=== PATIENT | female | born 2000 | race Caucasian/White ===

== ENCOUNTER 2022-04-23 23:09 | Emergency (ER) | payer BC, SELFPAY ==
--- NOTE | 2022-04-23 23:06 | ECG_ITS ---
APPROVED REPORT Exam: Resting ECG HR:73 bpm ECG Measurements Heart Rate 73 AXES CA 194 P 49 QRSd 89 QRS 36 QT 370 T 63 QTc 396 Conclusion SINUS RHYTHM MINIMAL ST DEPRESSION [0.025+ mV ST DEPRESSION] BORDERLINE ECG UNCONFIRMED REPORT Electronically signed by : Jcarlos Funes MD 04/24/2022 15:56:31
[2022-04-23 23:10] VITALS: BP 190/110; PULSE 80; RESP 19; TEMP 36.8; O2SAT 100; BMI 35.9
[2022-04-23 23:22] VITALS: BMI 35.9
--- NOTE | 2022-04-23 23:24 | XR_ITS ---
PROCEDURE INFORMATION: Exam: XR Chest Exam date and time: 04/23/2022 11:28 PM Age: 21 years old Clinical indication: Left-sided; Patient HX: PT C/O left arm pain that radiates to center of chest. HX HTN, medicated; Additional info: Chest pain TECHNIQUE: Imaging protocol: Radiologic exam of the chest. Views: 2 views. COMPARISON: No relevant prior studies available. FINDINGS: Lungs: Unremarkable. No consolidation. Pleural spaces: Unremarkable. No pleural effusion. No pneumothorax. Heart/Mediastinum: Unremarkable. No cardiomegaly. Bones/joints: Unremarkable. IMPRESSION: No acute findings.
[2022-04-23 23:30] VITALS: BP 151/108; PULSE 83; RESP 20; O2SAT 97
[2022-04-23 23:32] LABS: Chloride 98 mmol/L (98-107); Potassium 3.7 mmoL/L (3.5-5.1); Sodium 141 mmol/L (136-145)
[2022-04-23 23:35] LABS: Blood Urea Nitrogen 14 mg/dl (7-17); Creatinine Clearance Estimated 217 mL/min (50-200); Estimated Glomerular Filt Rate 104 ml/min (>60); GFR (African American) 125 ML/MIN (>60)
[2022-04-23 23:36] LABS: Anion Gap 15.7 mEq/L (5-15); Calcium 9.1 mg/dl (8.4-10.2); Carbon Dioxide 31 mmol/L (22.0-30.0); Glucose 122 mg/dl (74-100)
[2022-04-23 23:43] LABS: Basophils # 0.3 K/mm3 (0-0.2); Basophils % 2.2 % (0.1-2.0); Eosinophils # 0.3 K/mm3 (0.0-0.4); Eosinophils % 2.9 % (0.1-12.0); Hemoglobin 14.2 g/dL (12.2-16.2); Lymphocytes # 4.4 K/mm3 (0.7-4.5); Lymphocytes % 36.3 % (10-50); Mean Corpuscular Hemoglobin 27.7 pg (27.0-31.2); Mean Corpuscular Volume 83.9 fl (81-99); Mean Platelet Volume 7.3 fl (7.4-10.4); Monocytes # 0.8 K/mm3 (0.1-1.0); Monocytes % 6.9 % (1.7-9.3); Neutrophils # 6.2 K/mm3 (1.8-7.8); Neutrophils % 51.6 % (37.0-80.0); Platelet Count 467 K/mm3 (142-424); Red Blood Count 5.12 M/mm3 (4.20-5.40); Red Cell Distribution Width 13.4 % (11.5-17.5)
[2022-04-23 23:49] LABS: Troponin I < 0.01 ng/ml (0.00-0.034)
--- NOTE | 2022-04-23 23:58 | HMH.EDCP ---
Discharge Plan Disposition Chief Complaint: Chest Pain Prescriptions Prescriptions: No Action amlodipine 5 mg tablet 5 mg PO DAILY Label Comments: TAKE 1 TABLET BY MOUTH ONCE DAILY labetalol 100 mg tablet 100 mg PO TID Label Comments: TAKE 1 TABLET BY MOUTH EVERY 6 HOURS Referrals Follow up/Referrals: Provider,Referral, MD [Primary Care Provider] - See instructions Clinical Impressions Clinical Impression: Atypical chest pain, Hypertensive emergency Instructions Patient Instructions: DI for Atypical Chest Pain Discharge ED Provider: Rajendra Castillo Chest Pain HPI General Chief Complaint: Chest Pain Stated Complaint: CP Time Seen by Provider: 04/23/22 23:45 Mode of Arrival: Family Vehicle Source of Information: Patient, Spouse and Medical Record Limitations: No Limitations Description of Symptoms (Recalled from ER Triage Doc. by RN): Pt c/o left chest wall pain that began mildly this am and intensified tonight, about 2300. States she woke up @ 0500 with the chest pain, double and blurry vision, and dizziness. States she went back to sleep for 4-5 hrs and then after waking up, vision was better but still felt dizzy. Pt reports that the pain is worse tonight and pain now radiates to L shoulder and beginning down L arm. She also has numbness to L hand. Mild headache and nausea. States she has a hx of POTS and has taken her BP medication today as prescribed. History of Present Illness HPI narrative: episode of blurred vision yesterday with elevated bp - has been compliant with meds - MD complaint: chest pain indicative of cardiac Onset (ago): hour(s) Duration: intermittent Pain location: left chest Severity: moderate Treatments prior to or on arrival for Cardiac Chest Pain: beta blockers YOVANA Score for Non-Stemi Age of Patient: <30 years old Heart Rate: 70-89 bpm Systolic Blood Pressure: 140-159 mmHg Serum Creatinine: 0.40-0.79 mg/dl CHF Kill[place] Class: I-No CHF Other Risk Factors: None Non-Stemi Risk Score: 37 Related Data On Oral Contraceptives: No Home Medications Medication Instructions Recorded Confirmed amlodipine 5 mg tablet 5 mg PO DAILY High blood pressure 04/24/22 04/24/22 labetalol 100 mg tablet 100 mg PO TID pots 04/24/22 04/24/22 Allergies Allergy/AdvReac Type Severity Reaction Status Date / Time diphenhydramine Allergy Intermediate itchy Verified 04/23/22 23:24 [From Benadryl] mouth metformin AdvReac Intermediate Diarrhea Verified 04/23/22 23:24 PFSH PFSH Social History Smoking Status: Current every day smoker alcohol intake: never current occupational status: employed Travel in the last 8 weeks: None ROS Obtained: Yes All systems reviewed & no additional complaints except as documented Physical Exam General General appearance: alert Head Head exam: normocephalic Eye Eye exam: Present PERRL and EOMI ENT ENT exam: Present mucous membranes moist Neck Neck exam: Present trachea midline Respiratory Respiratory exam: Present normal lung sounds bilaterally; Absent respiratory distress Cardiovascular Cardiovascular exam: Present regular rate; Absent systolic murmur Abdominal Exam Abdominal exam: Present soft Extremities Exam Extremities exam: Present full ROM Neurological Exam Neurological exam: Present alert, oriented X3 and other (gcs=15); Absent motor sensory deficit Psychiatric Psychiatric exam: Present normal affect Skin Skin exam: Absent rash Medical Decision Making Medical Records Medical records reviewed: Yes I reviewed the patient's medical records. Fercho Inquiry Pt receiving controlled substance: No Vital Signs: 04/23/22 23:10 04/23/22 23:30 04/24/22 00:00 Temperature 98.3 F Temperature Source Oral Pulse Rate 83 80 Pulse Rate [Orthostatic Lying] Pulse Rate [Orthostatic Sitting] Pulse Rate [Orthostatic Standing] Pulse Rate [Right] 80 Respiratory Rate 19 20 19 Blood Pressure 151/108 H 155/109 H
[2022-04-24] VITALS: BP 155/109; PULSE 80; RESP 19; O2SAT 99
--- NOTE | 2022-04-24 00:01 | CT_ITS ---
PROCEDURE INFORMATION: Exam: CT Head Without Contrast Exam date and time: 04/24/2022 12:07 AM Age: 21 years old Clinical indication: Pain; Headache; Additional info: Diamond/dizzyness with elevated BP TECHNIQUE: Imaging protocol: Computed tomography of the head without contrast. Radiation optimization: All CT scans at this facility use at least one of these dose optimization techniques: automated exposure control; mA and/or kV adjustment per patient size (includes targeted exams where dose is matched to clinical indication); or iterative reconstruction. COMPARISON: No relevant prior studies available. FINDINGS: Brain: Normal. No hemorrhage. Unremarkable white matter. No mass effect. Cerebral ventricles: No ventriculomegaly. Paranasal sinuses: Left sphenoid sinus mucous retention cyst. Mastoid air cells: Visualized mastoid air cells are well aerated. Bones/joints: Unremarkable. No acute fracture. Soft tissues: Unremarkable. IMPRESSION: No acute intracranial abnormality.
[2022-04-24 00:30] VITALS: BP 150/110
[2022-04-24 01:11] VITALS: BP 171/116; BP 177/124; BP 201/123; PULSE 76; PULSE 90
[2022-04-24 01:34] LABS: Appearance,Urine CLEAR (Clear); Bilirubin,Urine Negative (Negative); Blood, Urine Negative (Negative); Color,Urine YELLOW (Yellow); Glucose,Urine (UA) Negative (Negative); Ketones,Urine Negative (Negative); Leukocyte Esterase,Urine Negative (Negative); Microscopic, Urine URINE MICROSCOPIC (MICROSCOPIC); Nitrate,Urine Negative (Negative); Protein,Urine Negative (Negative); Urobilinogen,Urine 0.2 EU/dl (0.2)
[2022-04-24 01:48] LABS: Bacteria,Urine 1+ /lpf; WBC,Urine Occasional #/hpf (0-3)
[2022-04-24 02:39] VITALS: BP 147/90; PULSE 79; RESP 17; TEMP 36.7; O2SAT 99
[2022-04-24 02:47] LABS: Troponin I < 0.01 ng/ml (0.00-0.034)
== END 2022-04-24 02:42 | disposition home or self-care (01) ==
PROVIDERS: Emergency Provider Emergency Medicine
DX: I16.0 Hypertensive urgency (principal); I10 Essential (primary) hypertension; Z72.0 Tobacco use; Z88.8 Allergy status to other drugs, medicaments and biological substances
CPT/HCPCS: 70450; 71046; 80048; 81001; 84484; 85025; 93005; 96365; 96366; 99285

== ENCOUNTER → 2022-05-02 10:30 | Outpatient (CLI) | payer BC, SELFPAY ==
[2022-05-02 18:46] LABS: Basophils # 0.2 K/mm3 (0-0.2); Basophils % 1.7 % (0.1-2.0); Eosinophils # 0.2 K/mm3 (0.0-0.4); Eosinophils % 2.2 % (0.1-12.0); Hematocrit 44.5 % (37.0-47.0); Hemoglobin 14.9 g/dL (12.2-16.2); Lymphocytes # 3.3 K/mm3 (0.7-4.5); Lymphocytes % 30.7 % (10-50); Mean Corpuscular HGB Conc 33.5 g/dL (31.8-35.4); Mean Corpuscular Hemoglobin 28.3 pg (27.0-31.2); Mean Corpuscular Volume 84.5 fl (81-99); Mean Platelet Volume 8.5 fl (7.4-10.4); Monocytes # 0.6 K/mm3 (0.1-1.0); Monocytes % 5.8 % (1.7-9.3); Neutrophils # 6.3 K/mm3 (1.8-7.8); Neutrophils % 59.6 % (37.0-80.0); Platelet Count 468 K/mm3 (142-424); Red Blood Count 5.27 M/mm3 (4.20-5.40); Red Cell Distribution Width 13.4 % (11.5-17.5); White Blood Count 10.6 K/mm3 (4.8-10.8)
[2022-05-02 19:08] LABS: Alanine Aminotransferase 50 U/L (12-78); Albumin Level 4.6 g/dl (3.5-5.0); Albumin/Globulin Ratio 1.5 (1.1-1.8); Alkaline Phosphatase 93 U/L (38-126); Anion Gap 17.5 mEq/L (5-15); Aspartate Amino Transferase 46 U/L (14-36); Bilirubin,Total 0.8 mg/dl (0.2-1.3); Blood Urea Nitrogen 11 mg/dl (7-17); Calcium 9.1 mg/dl (8.4-10.2); Carbon Dioxide 24 mmol/L (22.0-30.0); Chloride 101 mmol/L (98-107); Chol/HDL Ratio 3.5 (1-3.5); Cholesterol 181 mg/dl (140-200); Estimated Glomerular Filt Rate 153 ml/min (>60); GFR (African American) 185 ML/MIN (>60); Globulin 3.1 g/dL (1.3-3.2); Glucose 107 mg/dl (74-100); HDL Cholesterol 51 mg/dl (40-60); Potassium 4.5 mmoL/L (3.5-5.1); Sodium 138 mmol/L (136-145); Total Protein,Serum 7.7 g/dl (6.3-8.2); Triglycerides 86 mg/dl (30-150); VLDL Cholesterol 17 mg/dL (0-40)
[2022-05-02 19:19] LABS: Direct LDL Cholesterol 104.31 mg/dL (100-129)
[2022-05-02 19:36] LABS: Thyroid Stimulating Hormone 1.26 uIU/mL (0.465-4.68)
[2022-05-02 20:01] LABS: Hemoglobin A1C 5.5 % (4.0-6.0)
[2022-05-05 14:10] LABS: Urine Pregnancy, HCG Qual. Negative (Negative)
== END ==
PROVIDERS: PCP Nurse Practitioner Family; Visit Provider Nurse Practitioner Family
DX: I16.1 Hypertensive emergency (principal); I10 Essential (primary) hypertension; R53.83 Other fatigue
CPT/HCPCS: 80053; 80061; 81025; 83036; 84443; 85025

== ENCOUNTER → 2022-05-19 09:04 | Outpatient (CLI) | payer BC, SELFPAY ==
--- NOTE | 2022-05-19 09:04 | US_ITS ---
FINAL REPORT CLINICAL HISTORY: pcos FINDINGS: Transvaginal sonographic images of the pelvis were obtained. The uterus measures 5.6 by 2.5 x 4.8 cm. The endometrium measures mm, which is within normal limits. No uterine mass is identified. The right ovary measures 4.5 cm in length and left ovary measures 4.8 cm in length. Normal blood flow seen to the ovaries. There is a 2.2 cm cyst in the left ovary. Multiple small follicles are seen in both ovaries worrisome for PCOS. A small amount of free fluid is seen. IMPRESSION: 2.2 cm cyst in the left ovary. Multiple small follicles in both ovaries worrisome for PCOS. Reviewed, Interpreted and Dictated by Gerber Kim III, MD Transcribed by Martha Hirsch Authenticated and [facility]
== END ==
PROVIDERS: PCP Nurse Practitioner Family; Visit Provider Nurse Practitioner Obstetrics & Gynecology
DX: E28.2 Polycystic ovarian syndrome (principal)
CPT/HCPCS: 76830

== ENCOUNTER → 2022-05-26 07:39 | Outpatient (CLI) | payer BC, SELFPAY ==
--- NOTE | 2022-05-26 07:42 | CA_ITS ---
FINAL REPORT TECHNIQUE: Grayscale, color Doppler and duplex Doppler ultrasound of the kidneys, aorta and renal arteries was performed. Multiple velocities were measured. CLINICAL HISTORY: HTN,SMOKER,OBERSITY FINDINGS: Aorta velocity: 124 cm/sec Right kidney: 11.1 cm. No evidence of hydronephrosis or mass. Right intrarenal RI: 0.67 Right renal artery velocity: 184 cm/sec. Right RAR (Renal artery-Aortic Ratio): 1.5 Left Kidney: 11.9 cm. No evidence of hydronephrosis or mass. Left intrarenal RI: 0.53 Left renal artery velocity: 159 cm/sec. Left RAR (Renal Artery-Aortic Ratio): 1.3 IMPRESSION: No evidence of significant left renal artery stenosis. Less than 60% right renal artery stenosis. If indicated, CTA or catheter angiogram for further evaluation. Reviewed, Interpreted and Dictated by Gerber Kim III, MD Transcribed by Jacklyn Reeves Authenticated and . [facility]
--- NOTE | 2022-05-26 07:42 | CA_ITS ---
APPROVED REPORT EXAM: Comprehensive 2D, Doppler, and color-flow Echocardiogram Mobility Specialist: Carlita Carballo RVT Ht: 5 ft 9 in Wt: 246lbs BSA: 2.26 BP: 150/78 mmHg Indications: HTN,SMOKER,ASIF,ABN EKG,CP 2D Dimensions LVOT 2.05 cm (M/F) 1.5-2.5 LA Volume 17.60 mL LA Volume Index 7.82 mL/m2 (M/F) 16-34 M-Mode Dimensions RVDd 2.43 cm (0.9-2.6) LA Diam 3.18 cm (1.9-4.0) LVDd 4.45 cm (3.5-5.7) Ao Diam 2.78 cm (2.0-3.7) LVDs 2.39 cm (3.5-5.7) IVSd 0.95 cm (0.6-1.1) PWd 0.91 cm (0.6-1.1) EF (Teich) 77.80% FS 46.30% EDV (Teich) 90.10 mL TAPSE 2.02 (<1.7) ESV (Teich) 20.00 mL LV Diastology E Decel Time 150.00 (160-240 msec) E/A Ratio 1.5 MED E' 10.00 (< 7 cm/sec) E'/MED E' Ratio 7.94 (>14) LAT E' 15.70 (<10 cm/sec) E/LAT E' Ratio 5.06 (>14) Aortic Valve AO Peak GR. 4.80 mmHg Mitral Valve MV E Max Jaden. 79.00 (40-130 cm/s) MV A Velocity 53.00 (40-130 cm/s) E/A Ratio 1.50 MV Decel. Time 150.00 (160-240 ms) MV PHT 44.00 ms Pulmonary Valve PV Peak Velocity 82.00 (50-150 cm/s) Left Ventricle Left atrium is normal size left ventricle is normal size, there is no concentric left ventricular hypertrophy, estimated ejection fraction 55% with no regional wall motion abnormality, diastolic parameters are within normal range. Right Ventricle Right atrium and right ventricle are normal size and contractility. Aortic Valve Aortic valve is grossly normal there is no aortic stenosis or aortic insufficiency. Mitral Valve Mitral valve grossly normal, there is trace mitral regurgitation. Tricuspid Valve Tricuspid valve grossly normal, there is trace tricuspid regurgitation, tricuspid regurgitation jet velocity is inadequate for calculation of the right ventricular systolic pressure. Pulmonic Valve Pulmonic valve is poorly visualized. Great Vessels Aortic root is normal size. Inferior vena cava is normal size with normal inspiratory collapse. Pericardium No significant pericardial effusion noted. Conclusion 1. Normal left ventricular size preserved left ventricular systolic function, estimated ejection fraction 55% with no regional wall motion abnormality, diastolic parameters are within normal range. 2. Trace mitral and tricuspid regurgitation. 3. No significant pericardial effusion noted. 4. Inferior vena cava is normal size with normal inspiratory collapse. Electronically signed by : Chepe Pulliam MD 05/26/2022 16:35:29
== END ==
PROVIDERS: PCP Nurse Practitioner Family; Visit Provider Nurse Practitioner Family
DX: R06.00 Dyspnea, unspecified (principal); R07.89 Other chest pain; R42 Dizziness and giddiness; I10 Essential (primary) hypertension; R94.31 Abnormal electrocardiogram [ECG] [EKG]
CPT/HCPCS: 93306; 93976

== ENCOUNTER → 2022-06-06 08:45 | Outpatient (CLI) | payer BC, SELFPAY | PROVIDERS: PCP Nurse Practitioner Family; Visit Provider Nurse Practitioner Family | DX: N39.0 Urinary tract infection, site not specified (principal) | CPT/HCPCS: 87086 ==

== ENCOUNTER → 2022-07-08 14:42 | Outpatient (CLI) | payer BC, SELFPAY ==
[2022-07-08 13:29] LABS: Basophils # 0.2 K/mm3 (0-0.2); Basophils % 1.6 % (0.1-2.0); Eosinophils # 0.2 K/mm3 (0.0-0.4); Eosinophils % 2.5 % (0.1-12.0); Hematocrit 45.5 % (37.0-47.0); Hemoglobin 14.8 g/dL (12.2-16.2); Lymphocytes # 3.5 K/mm3 (0.7-4.5); Lymphocytes % 35.8 % (10-50); Mean Corpuscular HGB Conc 32.5 g/dL (31.8-35.4); Mean Corpuscular Hemoglobin 27.9 pg (27.0-31.2); Monocytes # 0.4 K/mm3 (0.1-1.0); Monocytes % 3.9 % (1.7-9.3); Neutrophils # 5.5 K/mm3 (1.8-7.8); Neutrophils % 56.2 % (37.0-80.0); Platelet Count 513 K/mm3 (142-424); Red Blood Count 5.29 M/mm3 (4.20-5.40); Red Cell Distribution Width 14.1 % (11.5-17.5); White Blood Count 9.8 K/mm3 (4.8-10.8)
[2022-07-08 13:46] LABS: Chloride 102 mmol/L (98-107); Sodium 140 mmol/L (136-145)
[2022-07-08 13:47] LABS: Potassium 4.5 mmoL/L (3.5-5.1)
[2022-07-08 13:49] LABS: Alanine Aminotransferase 54 U/L (12-78); Albumin/Globulin Ratio 1.7 (1.1-1.8); Alkaline Phosphatase 73 U/L (38-126); Aspartate Amino Transferase 33 U/L (14-36); Bilirubin,Total 0.6 mg/dl (0.2-1.3); Blood Urea Nitrogen 12 mg/dl (7-17); Estimated Glomerular Filt Rate 123 ml/min (>60); GFR (African American) 149 ML/MIN (>60)
[2022-07-08 13:50] LABS: Anion Gap 14.5 mEq/L (5-15); Calcium 10.3 mg/dl (8.4-10.2); Carbon Dioxide 28 mmol/L (22.0-30.0); Glucose 104 mg/dl (74-100)
[2022-07-08 13:55] LABS: C-Reactive Protein 4.3 mg/L (0-4); Erythrocyte Sedimentation Rate 8 mm/hr (0-20)
[2022-07-09 12:38] LABS: Anti-Cyclic Citrullinated Pept 2 units (0-19); RA Latex Turbid. <10.0 IU/mL (<14.0)
[2022-07-09 16:12] LABS: Anti-Centromere B Antibodies <0.2 AI (0.0-0.9); Anti-DNA (DS) Ab Qn 2 IU/mL (0-9); Anti-Jo-1 <0.2 AI (0.0-0.9); Anti-Smith Antibody <0.2 AI (0.0-0.9); Antichromatin Antibodies <0.2 AI (0.0-0.9); Antiscleroderma-70 Antibodies <0.2 AI (0.0-0.9); RNP Antibodies 0.4 AI (0.0-0.9); Sjogren's Anti-SS-A <0.2 AI (0.0-0.9); Sjogren's Anti-SS-B <0.2 AI (0.0-0.9)
[2022-07-10 17:38] LABS: Peripheral Smear Review Scanned Result
== END ==
PROVIDERS: PCP Physician Assistant; Visit Provider Physician Assistant
DX: R39.89 Other symptoms and signs involving the genitourinary system (principal); M25.50 Pain in unspecified joint
CPT/HCPCS: 80053; 85025; 85651; 86140; 86200; 86225; 86235; 86431; 87086

== ENCOUNTER → 2022-07-11 14:48 | Outpatient (CLI) | payer BC, SELFPAY | PROVIDERS: PCP Physician Assistant; Visit Provider Physician Assistant | DX: R39.9 Unspecified symptoms and signs involving the genitourinary system (principal) | CPT/HCPCS: 87086 ==

== ENCOUNTER → 2022-07-16 07:42 | Outpatient (CLI) | payer BC, SELFPAY ==
--- NOTE | 2022-07-16 07:42 | MR_ITS ---
FINAL REPORT CLINICAL HISTORY: headache, edema. FINDINGS: Multiplanar MR imaging of the brain was performed without contrast. There is no evidence of intracranial hemorrhage or mass. The ventricular size is normal. There is no evidence of shift of the midline structures. No abnormal extra-axial fluid collection is identified. The posterior fossa and brainstem have an unremarkable appearance. No area of abnormal restricted diffusion is identified. Normal major vessel vascular flow voids are seen. IMPRESSION: Unremarkable brain with no acute intracranial abnormality. Reviewed, Interpreted and Dictated by Gerber Kim III, MD Transcribed by Jacklyn Reeves Authenticated and . [facility]
== END ==
PROVIDERS: PCP Physician Assistant; Visit Provider Physician Assistant
DX: R51.9 Headache, unspecified (principal); R60.9 Edema, unspecified
CPT/HCPCS: 70551

== ENCOUNTER → 2022-07-23 11:48 | Outpatient (CLI) | payer BC, SELFPAY ==
--- NOTE | 2022-07-23 11:52 | XR_ITS ---
FINAL REPORT CLINICAL HISTORY: dysuria, hematuria, right flank pain FINDINGS: ABDOMEN SINGLE VIEW There is a nonspecific, nonobstructive bowel gas pattern. No bowel dilation is identified. There is a large amount of retained stool throughout the colon. Bowel gas obscures renal outlines. No definite renal stone identified. IMPRESSION: Large stool burden. Reviewed, Interpreted and Dictated by Gerber Kim III, MD Transcribed by Hillary Gonzalez Authenticated and . [facility]
== END ==
PROVIDERS: PCP Physician Assistant; Visit Provider Physician Assistant
DX: R30.0 Dysuria (principal); R39.198 Other difficulties with micturition; B96.89 Other specified bacterial agents as the cause of diseases classified elsewhere
CPT/HCPCS: 74018; 87086; 87088; 87186

== ENCOUNTER → 2022-08-06 10:22 | Outpatient (CLI) | payer BC, SELFPAY ==
--- NOTE | 2022-08-06 10:23 | CT_ITS ---
FINAL REPORT CLINICAL HISTORY: Renal stone protocol, right low back pain, difficulty urinating COMPARISON: none FINDINGS: Axial CT images of the abdomen and pelvis were obtained without intravenous contrast. Coronal reformatted images were also obtained.This study was performed with techniques to keep radiation doses as low as reasonably achievable (ALARA). Individualized dose reduction techniques using automated exposure control or adjustment of mA and/or kV according to the patient''s size were employed. Abdomen: There is mild bibasilar atelectasis. There is no evidence of renal stone or hydronephrosis. The liver is fatty infiltrated. Gallbladder is unremarkable. The spleen and pancreas have an unremarkable, unenhanced appearance. No mass or adenopathy is seen. No inflammatory process is identified. Pelvis: The appendix is normal. The bilateral ovaries are somewhat enlarged, of unclear significance. Underlying mass or masses are not excluded. Consider correlation with pelvic ultrasound. No ureteral stones identified. IMPRESSION: Bilateral enlarged ovaries of uncertain significance. Consider correlation with pelvic ultrasound. Fatty infiltration of the liver. Reviewed, Interpreted and Dictated by Gerber Kim III, MD Transcribed by Isis Diego Authenticated and [facility]
== END ==
PROVIDERS: PCP Physician Assistant; Visit Provider Physician Assistant
DX: N20.0 Calculus of kidney (principal)
CPT/HCPCS: 74176

== ENCOUNTER → 2022-08-25 10:45 | Outpatient (CLI) | payer BC, SELFPAY | PROVIDERS: PCP Physician Assistant; Visit Provider Physician Assistant | DX: R10.9 Unspecified abdominal pain (principal) | CPT/HCPCS: 87086 ==

== ENCOUNTER → 2022-08-28 13:45 | Outpatient (CLI) | payer BC, SELFPAY ==
--- NOTE | 2022-08-28 14:01 | US_ITS ---
FINAL REPORT CLINICAL HISTORY: Irregular menstrutation COMPARISON: 05/19/2022 FINDINGS: Transvaginal Ultrasound Transvaginal sonographic images of the pelvis were obtained. Findings: The uterus measures 5.4 x 2.9 x 4.2 cm. The endometrial stripe measures 9 mm, normal for patient of this age. There are multiple nabothian cysts in the lower uterine segment. Right ovary measures 4.8 x 3.4 x 3.4 cm. The left ovary measures 4.8 x 3.3 x 3.3 cm. There are multiple small cysts or follicles in the bilateral ovaries. No pelvic free fluid identified. IMPRESSION: Small cysts or follicles bilateral ovaries. Reviewed, Interpreted and Dictated by Cm Sullivan MD Transcribed by Isis Diego Authenticated and [facility]
== END ==
PROVIDERS: PCP Physician Assistant; Visit Provider Physician Assistant
DX: R39.9 Unspecified symptoms and signs involving the genitourinary system (principal); E28.2 Polycystic ovarian syndrome; N92.6 Irregular menstruation, unspecified
CPT/HCPCS: 76830; 87086

== ENCOUNTER 2022-10-01 11:00 | Outpatient (RCR) | payer BC, SELFPAY ==
--- NOTE | 2022-09-24 12:01 | HMH.PTOPEV ---
PT Outpatient Evaluation Rehab PT Outpatient Evaluation Start: 09/24/22 10:53 Freq: Status: Active Protocol: Document 09/24/22 10:53 IAM (Rec: 09/24/22 12:00 IAM [id number]) E-signed By Audelia Prasad, PT Outpatient Therapy Subjective History Subjective History Pt is a 22 y/o female who reports chronic migraines/ headaches since she was 12. Pt denies trauma. Pt reports onset of headaches as soon as she wakes up in the mornings that worsen throughout the day . Pt reports headaches are cosntant. Pt reports she has sensitivity to light and noise , dizziness, and nausea/ vomiting when headahces are really bad which occurs 2x/ week. Pt reports headaches/ pain originate at the base of skull and radiate up to the forehead, pentecostal, and sinuses/ eyes described as throbbing and stabbing. Pt reports any movement makes her head thump more. Pt denies paresthesia of the arms but states she does have intermittent n/t of bilateral hands and feet. Pt also states she has noticed an area of decreased sensation above the bra strap region. Pt denies having imaging of the neck but states she had a brain MRI in June of last year without significant findings. Pt reports she has tried treatment such as Botox and occipital nerve blocks with limited relief. Pt reports the last time she had Botox was at the end of the last year which only helped for about 2 weeks. Pt denies taking medication for migraines. Pt reports she has had PT when she was a teenager for headaches and the only thing that helped was manual distraction, states this only
== END 2022-10-01 11:05 | disposition home or self-care (01) ==
LOC: PT 11:00
PROVIDERS: PCP Physician Assistant; Visit Provider Specialist
DX: G43.809 Other migraine, not intractable, without status migrainosus (principal)
CPT/HCPCS: 97010; 97012; 97014; 97110; 97140; 97163; G0283

== ENCOUNTER → 2022-10-01 12:05 | Outpatient (CLI) | payer BC, SELFPAY | PROVIDERS: PCP Physician Assistant; Visit Provider Specialist | DX: G47.33 Obstructive sleep apnea (adult) (pediatric) (principal); R06.83 Snoring | CPT/HCPCS: G0399 ==

== ENCOUNTER → 2022-10-15 14:00 | Outpatient (CLI) | payer BC, SELFPAY ==
[2022-10-15 14:51] LABS: Basophils # 0.2 K/mm3 (0-0.2); Basophils % 1.5 % (0.1-2.0); Eosinophils # 0.2 K/mm3 (0.0-0.4); Eosinophils % 1.5 % (0.1-12.0); Hematocrit 45.3 % (37.0-47.0); Lymphocytes # 3.3 K/mm3 (0.7-4.5); Lymphocytes % 30.3 % (10-50); Mean Corpuscular HGB Conc 33.2 g/dL (31.8-35.4); Mean Corpuscular Hemoglobin 27.7 pg (27.0-31.2); Mean Corpuscular Volume 83.5 fl (81-99); Monocytes # 0.5 K/mm3 (0.1-1.0); Monocytes % 4.6 % (1.7-9.3); Neutrophils # 6.9 K/mm3 (1.8-7.8); Neutrophils % 62.1 % (37.0-80.0); Platelet Count 432 K/mm3 (142-424); Red Blood Count 5.42 M/mm3 (4.20-5.40); Red Cell Distribution Width 13.4 % (11.5-17.5); White Blood Count 11.1 K/mm3 (4.8-10.8)
[2022-10-15 15:17] LABS: Blood Urea Nitrogen 11 mg/dl (7-17); Calcium 9.2 mg/dl (8.4-10.2); Carbon Dioxide 33 mmol/L (22.0-30.0); Chloride 98 mmol/L (98-107); Estimated Glomerular Filt Rate 103 ml/min (>60); GFR (African American) 124 ML/MIN (>60); Glucose 116 mg/dl (74-100); Magnesium 2.2 mg/dl (1.6-2.3); Sodium 138 mmol/L (136-145)
[2022-10-15 15:35] LABS: Free T4 (Free Thyroxine) 1.14 ng/dl (0.78-2.19)
[2022-10-15 15:49] LABS: Thyroid Stimulating Hormone 1.02 uIU/mL (0.465-4.68)
== END ==
PROVIDERS: PCP Physician Assistant; Visit Provider Nurse Practitioner
DX: R00.2 Palpitations (principal)
CPT/HCPCS: 36415; 80048; 83735; 84439; 84443; 85025; 93270

== ENCOUNTER 2022-10-22 20:32 | Emergency (ER) | payer BC, SELFPAY ==
--- NOTE | 2022-10-22 20:30 | ECG_ITS ---
APPROVED REPORT Exam: Resting ECG HR:99 bpm ECG Measurements Heart Rate 99 AXES MA 184 P 53 QRSd 94 QRS 24 QT 328 T 74 QTc 385 Conclusion SINUS RHYTHM Left atrial abnormality NONSPECIFIC ST & T-WAVE ABNORMALITY BORDERLINE ECG UNCONFIRMED REPORT Electronically signed by : Jcarlos Funes MD 10/22/2022 23:03:07
[2022-10-22 20:38] VITALS: BP 157/97; PULSE 104; RESP 22; TEMP 37.2; O2SAT 98; BMI 37.6
--- NOTE | 2022-10-22 20:46 | XR_ITS ---
PROCEDURE INFORMATION: Exam: XR Chest Exam date and time: 10/22/2022 8:44 PM Age: 22 years old Clinical indication: Other: Mid back pain TECHNIQUE: Imaging protocol: Radiologic exam of the chest. Views: 2 views. COMPARISON: CR XR CHEST 2V 04/23/2022 11:28 PM FINDINGS: Lungs: Electronic device overlying the right mid chest. No consolidation. Pleural spaces: No pneumothorax. Heart/Mediastinum: No cardiomegaly. Bones/joints: No acute fracture. IMPRESSION: No acute findings.
[2022-10-22 20:59] LABS: Alanine Aminotransferase 48 U/L (12-78); Albumin/Globulin Ratio 1.5 (1.1-1.8); Alkaline Phosphatase 65 U/L (38-126); Anion Gap 14.6 mEq/L (5-15); Aspartate Amino Transferase 33 U/L (14-36); Basophils # 0.3 K/mm3 (0-0.2); Basophils % 2.1 % (0.1-2.0); Bilirubin,Total 1.2 mg/dl (0.2-1.3); Blood Urea Nitrogen 12 mg/dl (7-17); Calcium 9.1 mg/dl (8.4-10.2); Carbon Dioxide 31 mmol/L (22.0-30.0); Chloride 95 mmol/L (98-107); Creatinine Clearance Estimated 198 mL/min (50-200); Eosinophils # 0.3 K/mm3 (0.0-0.4); Eosinophils % 2.4 % (0.1-12.0); Estimated Glomerular Filt Rate 88 ml/min (>60); GFR (African American) 107 ML/MIN (>60); Globulin 3.3 g/dL (1.3-3.2); Glucose 99 mg/dl (74-100); Hematocrit 46.7 % (37.0-47.0); Lymphocytes # 2.1 K/mm3 (0.7-4.5); Lymphocytes % 15.8 % (10-50); Mean Corpuscular HGB Conc 32.2 g/dL (31.8-35.4); Mean Corpuscular Hemoglobin 27.6 pg (27.0-31.2); Mean Corpuscular Volume 85.7 fl (81-99); Monocytes # 0.7 K/mm3 (0.1-1.0); Monocytes % 5.2 % (1.7-9.3); Neutrophils # 9.8 K/mm3 (1.8-7.8); Neutrophils % 74.4 % (37.0-80.0); Platelet Count 410 K/mm3 (142-424); Potassium 3.6 mmoL/L (3.5-5.1); Red Blood Count 5.45 M/mm3 (4.20-5.40); Red Cell Distribution Width 13.6 % (11.5-17.5); Sodium 137 mmol/L (136-145); Total Protein,Serum 8.3 g/dl (6.3-8.2); White Blood Count 13.2 K/mm3 (4.8-10.8)
[2022-10-22 21:01] LABS: HCG Qualitative, Serum Negative (Negative)
[2022-10-22 21:12] LABS: Microscopic, Urine URINE MICROSCOPIC (MICROSCOPIC)
[2022-10-22 21:16] LABS: Troponin I < 0.01 ng/ml (0.00-0.034)
[2022-10-22 21:24] LABS: Appearance,Urine CLEAR (Clear); Bilirubin,Urine Negative (Negative); Blood, Urine Negative (Negative); Color,Urine YELLOW (Yellow); Glucose,Urine (UA) Negative (Negative); Ketones,Urine Negative (Negative); Leukocyte Esterase,Urine Negative (Negative); Nitrate,Urine Negative (Negative); Protein,Urine Negative (Negative); Specific Gravity, Urine >= 1.030 (1.005-1.030); Urobilinogen,Urine 0.2 EU/dl (0.2)
[2022-10-22 21:30] VITALS: BP 138/100; PULSE 91; O2SAT 99
[2022-10-22 21:30] LABS: Urine Pregnancy, HCG Qual. Negative (Negative)
[2022-10-22 21:32] LABS: C-Reactive Protein 16.6 mg/L (0-4)
[2022-10-22 21:38] LABS: Bacteria,Urine 1+ /lpf; WBC,Urine Occasional #/hpf (0-3)
[2022-10-22 22:00] VITALS: BP 134/89; PULSE 91; O2SAT 98
[2022-10-22 22:04] LABS: Erythrocyte Sedimentation Rate 13 mm/hr (0-20)
[2022-10-22 22:30] VITALS: BP 131/83; PULSE 95; O2SAT 95
[2022-10-22 22:46] LABS: Coronavirus 19, PCR Not Detected (NotDetected); Influenza A, PCR Not Detected (NotDetected); Influenza B, PCR Not Detected (NotDetected)
[2022-10-22 23:00] VITALS: BP 129/90; PULSE 90; O2SAT 95
[2022-10-23 00:44] LABS: Troponin I < 0.01 ng/ml (0.00-0.034)
--- NOTE | 2022-10-23 01:18 | HMH.EDFEV ---
Discharge Plan Disposition Patient Disposition: Home, Self-Care Prescriptions Prescriptions: No Action labetalol 100 mg tablet 100 mg PO TID Qty: 270 1RF medroxyprogesterone [Provera] 10 mg tablet 10 mg PO ONCE 15 Days Qty: 15 5RF methocarbamol 500 mg tablet 500 mg PO ONCE PRN Label Comments: TAKE 1 TABLET BY MOUTH EVERY NIGHT, SLOWLY INCREASE TO 1 TABLET TWICE DAILY NEEDED WITH A MAXIMUM OF 2 TABLETS THREE TIMES DAILY amlodipine [Norvasc] 10 mg tablet 10 mg PO DAILY Qty: 90 3RF hydrochlorothiazide 12.5 mg tablet See Rx Instructions .ROUTE .COMPLEX Qty: 90 3RF Dose Instruction: Take 1 tablet by mouth once daily Rx Instructions: Take 1 tablet by mouth once daily pregabalin [Lyrica] 25 mg capsule 25 mg PO BID Qty: 60 0RF folic acid 1 mg tablet 1 mg PO DAILY Qty: 30 6RF lamotrigine [Lamictal] 25 mg tablet 25 mg PO DAILY Qty: 90 0RF Rx Instructions: 25 mg QHS X 1 week, then 25 mg BID X 1 week, then 2X25 (50 mg) BID X 2 weeks then call Referrals Follow up/Referrals: Mau Horn PA [Primary Care Provider] - See instructions Harpreet Carreon MD [Staff Physician] - See instructions Clinical Impressions Clinical Impression: Acute febrile illness, Hypertension Instructions Patient Instructions: DI for Fever (Symptom) -- Adult Discharge ED Provider: Anna CARRASQUILLO)Rajendra Fever HPI General Chief Complaint: Fever Stated Complaint: Chest Pain Time Seen by Provider: 10/23/22 01:18 Mode of Arrival: Family Vehicle Source of Information: Patient and Medical Record Limitations: No Limitations Description of Symptoms (Recalled from ER Triage Doc. by RN): 22 yo female presents to registration with cc of chest pain, however upon arrival to room describes fever, body aches and pain in her back. denies cough/dyspnea, denies issues with bowel or bladder. doesn't offer any other symptoms. states she saw mau mckinnon) earlier in week and had labs drawn. denies contact with covid/flu that she is aware of. History of Present Illness HPI Narrative: fever and body aches tonight with back pain - also has elevated bp complaint: fever Onset (ago): hour(s) Temperature Source: oral Related Data Home Medications Medication Instructions Recorded Confirmed methocarbamol 500 mg tablet 500 mg PO ONCE PRN 09/03/22 10/15/22 Previous Rx's Medication Instructions Recorded medroxyprogesterone 10 mg tablet 10 mg PO ONCE 15 days #15 tabs 05/15/22 (Provera) labetalol 100 mg tablet 100 mg PO TID pots #270 tabs 06/10/22 folic acid 1 mg tablet 1 mg PO DAILY #30 tabs 08/28/22 amlodipine 10 mg tablet (Norvasc) 10 mg PO DAILY #90 tabs 09/24/22 hydrochlorothiazide 12.5 mg tablet See Rx Instructions .Route 09/24/22 .COMPLEX #90 tabs pregabalin 25 mg capsule (Lyrica) 25 mg PO BID #60 caps 09/24/22 lamotrigine 25 mg tablet (Lamictal) 25 mg PO DAILY #90 tabs 10/07/22 Allergies Allergy/AdvReac Type Severity Reaction Status Date / Time diphenhydramine Allergy Intermediate itchy Verified 10/15/22 13:41 [From Benadryl] mouth atogepant [From Qulipta] Allergy Mild Verified 10/15/22 13:41 metformin AdvReac Intermediate Diarrhea Verified 10/15/22 13:41 [facility] Disclaimer: The information contained in this section may have been updated after the patient was seen, as this information can be updated by other users. Medical History (Updated 10/23/22 @ 01:33 by Rajendra Castillo (ED)MD) Abnormal electrocardiogram [ECG] [EKG] Chest pain Family history of rheumatoid arthritis Female infertility associated with anovulation History of PCOS POTS (postural orthostatic tachycardia syndrome) Surgical History History of placement of ear tubes Page teeth removed Family History Other Asthma Cancer Diabetes Heart attack Hyperlipidemia Hypertension Str
[2022-10-23 01:28] VITALS: BP 136/90; PULSE 94; O2SAT 98
[2022-10-23 01:38] VITALS: BP 134/78; PULSE 90; RESP 16; TEMP 37.1; O2SAT 95
== END 2022-10-23 02:05 | disposition home or self-care (01) ==
PROVIDERS: Emergency Provider Emergency Medicine; PCP Physician Assistant
DX: R50.9 Fever, unspecified (principal); I10 Essential (primary) hypertension; R07.9 Chest pain, unspecified
CPT/HCPCS: 36415; 71046; 80053; 81001; 81025; 84484; 84703; 85025; 85651; 86140; 93005; 96361; 96374; 96375; 99284; 99285; C9803; U0003; U0005

== ENCOUNTER 2022-10-29 08:02 | Outpatient (CLI) | payer BC, SELFPAY ==
[2022-10-29] VITALS (7 sets, daily range): BP systolic 121–154; BP diastolic 74–99; PULSE 69–85; RESP 16–18; TEMP 36.7; O2SAT 97–100; BMI 41.5
[2022-10-29 08:35] LABS: Urine Pregnancy, HCG Qual. Negative (Negative)
== END 2022-10-29 09:50 | disposition home or self-care (01) ==
LOC: RAD 08:03
PROVIDERS: PCP Physician Assistant; Visit Provider Nurse Practitioner Family
DX: R07.9 Chest pain, unspecified (principal)
CPT/HCPCS: 75574; 81025; Q9967

== ENCOUNTER 2023-01-19 13:50 | Emergency (ER) | payer BC, SELFPAY ==
[2023-01-19 13:50] VITALS: BP 138/92; PULSE 68; RESP 19; TEMP 36.8; O2SAT 98; BMI 35.4
--- NOTE | 2023-01-19 13:59 | CT_ITS ---
FINAL REPORT TECHNIQUE: After the administration of intravenous contrast, axial images were obtained through the abdomen and pelvis by computed tomography. This study was performed with technique to keep radiation doses as low as reasonably achievable, (ALARA). Individualized dose reduction techniques using automated exposure control or adjustment of the MA and/or KV according to the patient's size were employed. CLINICAL HISTORY: abdominal pain COMPARISON: 08/06/2022 FINDINGS: Abdomen: The lung bases are clear. The liver is fatty infiltrated. The spleen is unremarkable. The adrenals are normal. The pancreas is unremarkable. There is mild scarring in the lateral left kidney. Otherwise, the kidneys enhance appropriately. The aorta is normal in caliber. There is no free fluid or adenopathy. Pelvis: The appendix is normal. The ovaries are again noted to be prominent with multiple follicles bilaterally which is nonspecific but could represent polycystic ovarian syndrome. The urinary bladder is unremarkable. There is no free fluid or adenopathy. IMPRESSION: Fatty infiltration of the liver. Prominent ovary is again seen with multiple follicles which is nonspecific but could represent polycystic ovarian syndrome. Reviewed, Interpreted and Dictated by Gerber Kim III, MD Transcribed by Doreen Bailey Authenticated and [facility]
[2023-01-19 14:24] LABS: Microscopic, Urine URINE MICROSCOPIC (MICROSCOPIC)
[2023-01-19 14:26] LABS: Basophils # 0.1 K/mm3 (0-0.2); Basophils % 0.8 % (0.1-2.0); Eosinophils # 0.2 K/mm3 (0.0-0.4); Eosinophils % 1.9 % (0.1-12.0); Hematocrit 49.4 % (37.0-47.0); Hemoglobin 16.2 g/dL (12.2-16.2); Lymphocytes # 1.8 K/mm3 (0.7-4.5); Lymphocytes % 14.1 % (10-50); Mean Corpuscular HGB Conc 32.9 g/dL (31.8-35.4); Mean Corpuscular Hemoglobin 27.2 pg (27.0-31.2); Mean Corpuscular Volume 82.8 fl (81-99); Monocytes # 0.5 K/mm3 (0.1-1.0); Monocytes % 4.2 % (1.7-9.3); Neutrophils # 10.1 K/mm3 (1.8-7.8); Neutrophils % 78.9 % (37.0-80.0); Platelet Count 417 K/mm3 (142-424); Red Blood Count 5.96 M/mm3 (4.20-5.40); Red Cell Distribution Width 13.7 % (11.5-17.5); White Blood Count 12.8 K/mm3 (4.8-10.8)
[2023-01-19 14:30] VITALS: BP 136/83; PULSE 63; RESP 20; O2SAT 98
[2023-01-19 14:35] LABS: Appearance,Urine CLEAR (Clear); Bilirubin,Urine Negative (Negative); Blood, Urine Negative (Negative); Color,Urine YELLOW (Yellow); Glucose,Urine (UA) Negative (Negative); Ketones,Urine Negative (Negative); Leukocyte Esterase,Urine Negative (Negative); Nitrate,Urine Negative (Negative); Protein,Urine Negative (Negative); Urobilinogen,Urine 0.2 EU/dl (0.2)
--- NOTE | 2023-01-19 14:37 | PC.NURSE ---
Patient given ice chips after okay'd by attending.
[2023-01-19 15:00] VITALS: BP 126/93; PULSE 64; O2SAT 98
[2023-01-19 15:06] LABS: Chloride 98 mmol/L (98-107); Sodium 139 mmol/L (136-145)
[2023-01-19 15:07] LABS: Potassium 3.9 mmoL/L (3.5-5.1)
[2023-01-19 15:09] LABS: Alanine Aminotransferase 77 U/L (12-78); Anion Gap 17.9 mEq/L (5-15); Aspartate Amino Transferase 45 U/L (14-36); Blood Urea Nitrogen 9 mg/dl (7-17); Carbon Dioxide 27 mmol/L (22.0-30.0); Creatinine Clearance Estimated 213 mL/min (50-200); Estimated Glomerular Filt Rate 103 ml/min (>60); GFR (African American) 124 ML/MIN (>60)
[2023-01-19 15:10] LABS: Albumin Level 5.1 g/dl (3.5-5.0); Albumin/Globulin Ratio 1.3 (1.1-1.8); Alkaline Phosphatase 83 U/L (38-126); Calcium 9.8 mg/dl (8.4-10.2); Globulin 3.9 g/dL (1.3-3.2); Glucose 125 mg/dl (74-100); Lipase 123 U/L (23-300)
[2023-01-19 15:23] LABS: Bacteria,Urine Trace /lpf; WBC,Urine Occasional #/hpf (0-3)
--- NOTE | 2023-01-19 15:36 | PC.NURSE ---
Called lab to check on HCG. 10 min eta for result and then patient can have CT scan
--- NOTE | 2023-01-19 15:42 | HMH.EDGENADL ---
Discharge Plan Disposition Patient Disposition: Home, Self-Care Prescriptions Prescriptions: New ondansetron 4 mg tablet,disintegrating 4 mg PO Q8H PRN (Reason: Nausea) Qty: 30 0RF No Action amlodipine [Norvasc] 10 mg tablet 10 mg PO BID Qty: 60 5RF methocarbamol 500 mg tablet 500 mg PO ONCE Label Comments: TAKE 1 TABLET BY MOUTH EVERY NIGHT, SLOWLY INCREASE TO 1 TABLET TWICE DAILY NEEDED WITH A MAXIMUM OF 2 TABLETS THREE TIMES DAILY pregabalin [Lyrica] 25 mg capsule 25 mg PO BID Qty: 60 0RF medroxyprogesterone [Provera] 10 mg tablet 10 mg PO ONCE folic acid 1 mg tablet 1 mg PO DAILY lamotrigine [Lamictal] 150 mg tablet 75 mg PO BID nadolol 40 mg tablet 40 mg PO DAILY hydrochlorothiazide 25 mg tablet 25 mg PO QDAY Referrals Follow up/Referrals: Kandice Horn PA [Primary Care Provider] - See instructions Activity Restrictions/Add. Instructions Additional Instructions/Restrictions: Return for worsening abdominal pain bleeding or any other concerns within the next 8 hours. Otherwise follow-up with gastroenterology Dr. Prado as recommended. Clinical Impressions Clinical Impression: Abdominal pain Instructions Patient Instructions: DI for Acute Abdominal Pain Discharge ED Provider: Dionicio Kwok General Adult HPI General Chief complaint: Abdominal Pain Stated complaint: Abd pain blood in stool pelvic pain Time Seen by Provider: 01/19/23 14:00 Mode of Arrival: Ambulatory Source of Information: Patient Limitations: No Limitations Description of Symptoms (Recalled from ER Triage Doc. by RN): 22 F presents from home with sudden onset of abdominal pain at 0630 this morning. Continued n/v/d, chills, and now a new onset of bright red blood from her rectum. History of Present Illness HPI narrative: 22-year-old female presents with abdominal pain epigastric in nature. She says that it began at 6 AM this morning and she has had nausea vomiting diarrhea associated with it. She did have 1 episode of bright red blood per rectum as well. No fever or chills. No other recent episodes like this. No blood thinners. No dysuria or hematuria Related Data Home Medications Medication Instructions Recorded Confirmed methocarbamol 500 mg tablet 500 mg PO ONCE . 09/03/22 01/19/23 folic acid 1 mg tablet 1 mg PO DAILY Supplement 10/29/22 01/19/23 medroxyprogesterone 10 mg tablet 10 mg PO ONCE . 10/29/22 01/19/23 (Provera) hydrochlorothiazide 25 mg tablet 25 mg PO QDAY Fluid 01/19/23 01/19/23 lamotrigine 150 mg tablet 75 mg PO BID Seizure 01/19/23 01/19/23 (Lamictal) nadolol 40 mg tablet 40 mg PO DAILY Heart rhythm 01/19/23 01/19/23 Previous Rx's Medication Instructions Recorded amlodipine 10 mg tablet (Norvasc) 10 mg PO BID High blood pressure 11/18/22 #60 tabs pregabalin 25 mg capsule (Lyrica) 25 mg PO BID fibromyalgia #60 caps 12/26/22 ondansetron 4 mg disintegrating 4 mg PO Q8H PRN Nausea #30 tabs 01/19/23 tablet Allergies Allergy/AdvReac Type Severity Reaction Status Date / Time diphenhydramine Allergy Intermediate itchy Verified 12/17/22 13:38 [From Benadryl] mouth atogepant [From Qulipta] Allergy Mild Verified 12/17/22 13:38 metformin AdvReac Intermediate Diarrhea Verified 12/17/22 13:38 [facility] Disclaimer: The information contained in this section may have been updated after the patient was seen, as this information can be updated by other users. Medical History Abnormal electrocardiogram [ECG] [EKG] Bipolar II disorder Chest pain Family history of rheumatoid arthritis Female infertility associated with anovulation Fibromyalgia History of PCOS POTS (postural orthostatic tachycardia syndrome) Surgical History History of placement of ear tubes [place] teeth removed [place] teeth removed Family History (Revie
[2023-01-19 15:51] LABS: HCG Qualitative, Serum Negative (Negative)
--- NOTE | 2023-01-19 16:03 | PC.NURSE ---
pt return from CT
[2023-01-19 16:30] VITALS: BP 124/82; PULSE 60; O2SAT 98
--- NOTE | 2023-01-19 17:44 | PC.NURSE ---
Left message with scheduling for them to call pt with appt with the ANGEL MCLEAN
[2023-01-19 17:50] VITALS: BP 110/63; PULSE 63; RESP 16; TEMP 36.7; O2SAT 97
== END 2023-01-19 17:51 | disposition home or self-care (01) ==
PROVIDERS: Emergency Provider Emergency Medicine; PCP Physician Assistant
DX: R10.13 Epigastric pain (principal); R11.2 Nausea with vomiting, unspecified; R19.7 Diarrhea, unspecified; F31.81 Bipolar II disorder; E28.2 Polycystic ovarian syndrome; F17.200 Nicotine dependence, unspecified, uncomplicated
CPT/HCPCS: 74177; 80053; 81001; 83690; 84703; 85025; 96361; 96374; 96375; 96376; 99285; J2405; Q9967

== ENCOUNTER → 2023-02-18 11:53 | Outpatient (CLI) | payer BC, SELFPAY ==
[2023-02-19 18:22] LABS: H. pylori Breath Test Negative (Negative)
== END ==
PROVIDERS: PCP Physician Assistant; Visit Provider Physician Assistant
DX: K21.9 Gastro-esophageal reflux disease without esophagitis (principal); M79.7 Fibromyalgia
CPT/HCPCS: 83013

== ENCOUNTER → 2023-03-06 16:15 | Outpatient (CLI) | payer BC, SELFPAY ==
[2023-03-06 16:19] LABS: MANUAL DIFFERENTIAL MANUAL DIFFERENTIAL (MANUAL DIFF)
[2023-03-06 17:11] LABS: Basophils # 0.1 K/mm3 (0-0.2); Eosinophils # 0.3 K/mm3 (0.0-0.4); Eosinophils % 2.6 % (0.1-12.0); Hemoglobin 14.7 g/dL (12.2-16.2); Lymphocytes # 3.9 K/mm3 (0.7-4.5); Lymphocytes % 33.6 % (10-50); Mean Corpuscular HGB Conc 33.4 g/dL (31.8-35.4); Mean Corpuscular Hemoglobin 27.8 pg (27.0-31.2); Mean Corpuscular Volume 83.2 fl (81-99); Mean Platelet Volume 7.4 fl (7.4-10.4); Monocytes # 0.6 K/mm3 (0.1-1.0); Monocytes % 5.3 % (1.7-9.3); Neutrophils # 6.7 K/mm3 (1.8-7.8); Neutrophils % 57.5 % (37.0-80.0); Platelet Count 393 K/mm3 (142-424); Red Blood Count 5.29 M/mm3 (4.20-5.40); Red Cell Distribution Width 13.9 % (11.5-17.5); White Blood Count 11.7 K/mm3 (4.8-10.8)
[2023-03-06 17:47] LABS: 25-OH Vitamin D, Total 31.7 ng/mL (30-100)
[2023-03-06 18:00] LABS: Thyroid Stimulating Hormone 1.73 uIU/mL (0.465-4.68)
[2023-03-06 19:26] LABS: Lymphocytes % 42 % (10-50); Monocytes % 2 % (2-9); Neutrophils % 56 % (42-76); Platelet Estimate Normal; RBC Morphology Normal; Total Cells Counted 100
[2023-03-08 07:13] LABS: Prolactin 9.8 ng/mL (4.8-23.3); Testosterone,Total 129 ng/dL (13-71)
== END ==
PROVIDERS: PCP Physician Assistant; Visit Provider Obstetrics & Gynecology
DX: N93.9 Abnormal uterine and vaginal bleeding, unspecified (principal); R53.83 Other fatigue; L68.0 Hirsutism; E66.9 Obesity, unspecified; Z68.34 Body mass index [BMI] 34.0-34.9, adult
CPT/HCPCS: 36415; 82306; 82626; 83498; 84146; 84403; 84443; 85007; 85014; 85018; 85048; 85049

== ENCOUNTER → 2023-03-16 13:59 | Outpatient (CLI) | payer BC, SELFPAY ==
--- NOTE | 2023-03-16 13:59 | US_ITS ---
PROCEDURE: US TRANSVAGINAL CLINICAL INDICATION: menorrhagia and abdominal pain COMPARISON: No exams were available for comparison FINDINGS: Transvaginal sonographic images of the pelvis were obtained. UTERUS: 5.5 cm x 4.2 cmx 3.1 cm with a combined endometrial thickness of 9mm. There are several nabothian cysts. LEFT OVARY: 5.3 cmx3.9 cmx3.7cm with a volume of 39.2ml.It contains multiple small follicles RIGHT OVARY: 4.1 cmx 3.0 cmx4cm with a volume of 23.4ml. It contains multiple small follicles Both ovaries are seen and appear normal. They both have a polycystic appearance. Doppler flow to both ovaries are seen. There is no fluid in the cul-de-sac. IMPRESSION: 1. Anteverted anteflexed uterus normal in shape and size. 2. The endometrium is normal. 3. Both ovaries are seen and appear polycystic. 4. There is no fluid in the cul-de-sac. Dictated by: Misbah Forrester MD 03/16/2023 18:29 Misbah Forrester MD in OV 03/16/2023 18:29
== END ==
PROVIDERS: PCP Physician Assistant; Visit Provider Obstetrics & Gynecology
DX: N92.1 Excessive and frequent menstruation with irregular cycle (principal); R10.9 Unspecified abdominal pain
CPT/HCPCS: 76830

== ENCOUNTER → 2023-07-01 12:28 | Outpatient (CLI) | payer BC, SELFPAY | PROVIDERS: PCP Physician Assistant; Visit Provider Physician Assistant | DX: T75.4XXA Electrocution, initial encounter (principal) | CPT/HCPCS: 95816 ==

== ENCOUNTER 2023-07-10 11:01 | Emergency (ER) | payer BC, SELFPAY ==
[2023-07-10] VITALS (7 sets, daily range): BP systolic 105–143; BP diastolic 62–96; PULSE 66–78; RESP 16–18; TEMP 36.6–36.7; O2SAT 95–99; BMI 35.4
--- NOTE | 2023-07-10 11:06 | HMH.EDGENADL ---
Discharge Plan Disposition Patient Disposition: Home, Self-Care Condition: Good Prescriptions Prescriptions: New amoxicillin-pot clavulanate 875-125 mg tablet 1 tab PO Q8H 7 Days Qty: 21 0RF dicyclomine 10 mg capsule 10 mg PO QID PRN (Reason: abdominal pain) Qty: 14 0RF promethazine 12.5 mg tablet 12.5 mg PO Q6H PRN (Reason: allergy symptoms) Qty: 14 0RF Rx Instructions: 3 doses during day; last dose no later than 4 hr before bedtime No Action amlodipine [Norvasc] 10 mg tablet 10 mg PO BID Qty: 60 5RF ibuprofen 800 mg tablet 800 mg PO Q8H Qty: 30 0RF ondansetron 4 mg tablet,disintegrating 4 mg PO Q8H PRN (Reason: Nausea) Qty: 30 0RF duloxetine [Cymbalta] 30 mg capsule,delayed release(DR/EC) 30 mg PO DAILY Qty: 14 0RF Rx Instructions: 30 mg daily X 14 days, then increase to 60 mg daily duloxetine [Cymbalta] 60 mg capsule,delayed release(DR/EC) 60 mg PO DAILY Qty: 30 2RF furosemide [Lasix] 20 mg tablet 20 mg PO DAILY Qty: 30 2RF methocarbamol 500 mg tablet 500 mg PO ONCE Patient Comments: TAKE 1 TABLET BY MOUTH EVERY NIGHT, SLOWLY INCREASE TO 1 TABLET TWICE DAILY NEEDED WITH A MAXIMUM OF 2 TABLETS THREE TIMES DAILY folic acid 1 mg tablet 1 mg PO DAILY Qty: 30 11RF pantoprazole 40 mg tablet,delayed release (DR/EC) See Rx Instructions .ROUTE .COMPLEX Qty: 90 0RF Dose Instruction: Take 1 tablet by mouth once daily Rx Instructions: Take 1 tablet by mouth once daily nadolol 40 mg tablet 40 mg PO DAILY Qty: 30 5RF pregabalin [Lyrica] 50 mg capsule 50 mg PO BID Qty: 60 2RF hydrochlorothiazide 25 mg tablet 25 mg PO QDAY Referrals Follow up/Referrals: Kandice Horn PA [Primary Care Provider] - See instructions Mikki Prado MD [Physician] - See instructions Activity Restrictions/Add. Instructions Additional Instructions/Restrictions: Please follow-up with your primary care provider. Please return to the emergency department if you develop any new or worsening symptoms or become concerned for your health. Clinical Impressions Clinical Impression: Colitis Abdominal pain Qualifiers: Abdominal location: generalized Qualified Code(s): R10.84 - Generalized abdominal pain Nausea & vomiting Qualifiers: Vomiting type: unspecified Qualified Code(s): R11.2 - Nausea with vomiting, unspecified Instructions Patient Instructions: DI for Acute Abdominal Pain Discharge ED Provider: Tello Jessica I General Adult HPI General Chief complaint: Abdominal Pain Stated complaint: admonial pain Time Seen by Provider: 07/10/23 11:02 History of Present Illness HPI narrative: Patient is a 23 year old female with history of bipolar II disorder, PCOS, POTS, fibromyalgia, HTN, chronic migraines presenting to the ED with abdominal pain. History was conducted with the patient at bedside. Patient states that she has been in her normal state of health over the past several days, then woke up at 4 this morning with severe lower abdominal cramping pain. She reports that she then attempted to have a bowel movement, instead was nauseous with 1 episode of nonbloody nonbilious emesis. She reports that she then had a bowel movement with bright red blood. She had 2 subsequent bowel movements with bright red blood, does not believe that she passed any blood clots. She has had persistent cramping abdominal pain. She does report that she has had prior history of bloody bowel movements, for which she was given referral to GI, but has not yet had a colonoscopy. She reports that she has been attempting to schedule this in the outpatient setting without success. She does report that her last menstrual cycle was approximately 2 and half weeks ago, she was started on an OCP 2 weeks ago. Her menstrual cycle lasted for approximately 5 days. Has not had any additional vaginal bleeding, dysuria but she does report that she has had difficu
[2023-07-10 11:13] LABS: Microscopic, Urine URINE MICROSCOPIC (MICROSCOPIC)
--- NOTE | 2023-07-10 11:14 | PC.NURSE ---
DR HUGHES AT BEDSIDE
[2023-07-10 11:22] LABS: Appearance,Urine SL CLOUDY (Clear); Blood, Urine TRACE-I (Negative); Color,Urine YELLOW (Yellow); Glucose,Urine (UA) Negative (Negative); Ketones,Urine 2+ (Negative); Leukocyte Esterase,Urine Negative (Negative); Nitrate,Urine Negative (Negative); Protein,Urine TRACE (Negative); Urobilinogen,Urine 0.2 EU/dl (0.2)
[2023-07-10 11:23] LABS: Urine Pregnancy, HCG Qual. Negative (Negative)
--- NOTE | 2023-07-10 11:24 | CT_ITS ---
FINAL REPORT TECHNIQUE: After the administration of intravenous contrast, axial images were obtained through the abdomen and pelvis by computed tomography. This study was performed with technique to keep radiation doses as low as reasonably achievable, (ALARA). Individualized dose reduction techniques using automated exposure control or adjustment of the MA and/or KV according to the patient's size were employed. CLINICAL HISTORY: Blood in BMs with abdominal cramping pain COMPARISON: 01/19/2023 FINDINGS: Abdomen: The lung bases are clear. There is mild, diffuse fatty infiltration of the liver. Gallbladder is present. The spleen is unremarkable. The adrenals are normal. The pancreas is unremarkable. The kidneys enhance appropriately. The aorta is normal in caliber. There is no free fluid or adenopathy. Questionable, mild prominence is seen of the mucosa of the descending colon which may represent mild, infectious/inflammatory colitis. Pelvis: The appendix is not identified. The urinary bladder is unremarkable. There is no free fluid or adenopathy. Uterus and ovaries are unremarkable. Right ovary measures 4.1 cm. Left ovary measures 3.4 cm. IMPRESSION: Questionable mild prominence of the mucosa of the descending colon which may represent mild infectious/inflammatory colitis. Reviewed, Interpreted and Dictated by Cm Sullivan MD Transcribed by Doreen Bailey Authenticated and [facility]
[2023-07-10 11:29] LABS: Bilirubin,Urine 1+ (Negative)
[2023-07-10 11:33] LABS: Bacteria,Urine 2+ /lpf
[2023-07-10 11:47] LABS: Basophils # 0.1 K/mm3 (0-0.2); Basophils % 0.6 % (0.1-2.0); Eosinophils # 0.2 K/mm3 (0.0-0.4); Eosinophils % 1.4 % (0.1-12.0); Hematocrit 45.5 % (37.0-47.0); Hemoglobin 15.3 g/dL (12.2-16.2); Lymphocytes # 1.4 K/mm3 (0.7-4.5); Mean Corpuscular HGB Conc 33.7 g/dL (31.8-35.4); Mean Corpuscular Hemoglobin 27.8 pg (27.0-31.2); Mean Corpuscular Volume 82.4 fl (81-99); Mean Platelet Volume 7.1 fl (7.4-10.4); Monocytes # 0.7 K/mm3 (0.1-1.0); Monocytes % 4.1 % (1.7-9.3); Neutrophils # 13.6 K/mm3 (1.8-7.8); Platelet Count 446 K/mm3 (142-424); Red Blood Count 5.52 M/mm3 (4.20-5.40); Red Cell Distribution Width 13.7 % (11.5-17.5)
[2023-07-10 11:51] LABS: MANUAL DIFFERENTIAL MANUAL DIFFERENTIAL (MANUAL DIFF)
[2023-07-10 11:56] LABS: Chloride 102 mmol/L (98-107)
[2023-07-10 11:57] LABS: Potassium 3.7 mmoL/L (3.5-5.1); Sodium 139 mmol/L (136-145)
[2023-07-10 11:59] LABS: Alanine Aminotransferase 57 U/L (12-78); Alkaline Phosphatase 69 U/L (38-126); Anion Gap 12.7 mEq/L (5-15); Aspartate Amino Transferase 41 U/L (14-36); Blood Urea Nitrogen 12 mg/dl (7-17); Carbon Dioxide 28 mmol/L (22.0-30.0); Creatinine Clearance Estimated 211 mL/min (50-200); Estimated Glomerular Filt Rate 102 ml/min (>60); GFR (African American) 123 ML/MIN (>60); Lipase 110 U/L (23-300)
[2023-07-10 12:00] LABS: Albumin Level 5.2 g/dl (3.5-5.0); Albumin/Globulin Ratio 1.4 (1.1-1.8); Calcium 9.6 mg/dl (8.4-10.2); Globulin 3.8 g/dL (1.3-3.2); Glucose 131 mg/dl (74-100)
--- NOTE | 2023-07-10 12:24 | PC.NURSE ---
PT TO CT
--- NOTE | 2023-07-10 12:26 | PC.NURSE ---
PT GONE TO CT
[2023-07-10 12:52] LABS: Lymphocytes % 6 % (10-50); Monocytes % 3 % (2-9); Neutrophils % 91 % (42-76); Platelet Estimate Slight Increase; RBC Morphology Normal; Total Cells Counted 100
--- NOTE | 2023-07-10 13:47 | PC.NURSE ---
patient resting in bed; able to tolerate taking PO medications.
--- NOTE | 2023-07-14 11:37 | PC.NURSE ---
urine results shows mixed urogenital noe, dc on augmentin, no further action per
== END 2023-07-10 14:45 | disposition home or self-care (01) ==
PROVIDERS: Emergency Provider Emergency Medicine; PCP Physician Assistant
DX: R10.84 Generalized abdominal pain (principal); R11.2 Nausea with vomiting, unspecified; K52.9 Noninfective gastroenteritis and colitis, unspecified; F31.81 Bipolar II disorder; E28.2 Polycystic ovarian syndrome; M79.7 Fibromyalgia; I10 Essential (primary) hypertension
CPT/HCPCS: 74177; 80053; 81001; 81025; 83690; 85007; 85025; 86850; 87086; 96361; 96374; 99285; Q9967

== ENCOUNTER 2023-07-29 07:30 | Outpatient (CLI) | payer BC, SELFPAY ==
[2023-07-29 19:42] LABS: Alanine Aminotransferase 53 U/L (12-78); Albumin Level 4.5 g/dl (3.5-5.0); Albumin/Globulin Ratio 1.6 (1.1-1.8); Alkaline Phosphatase 45 U/L (38-126); Anion Gap 11.9 mEq/L (5-15); Aspartate Amino Transferase 40 U/L (14-36); Bilirubin,Total 0.6 mg/dl (0.2-1.3); Blood Urea Nitrogen 12 mg/dl (7-17); Carbon Dioxide 28 mmol/L (22.0-30.0); Chloride 100 mmol/L (98-107); Chol/HDL Ratio 6.5 (1-3.5); Cholesterol 222 mg/dl (140-200); Estimated Glomerular Filt Rate 102 ml/min (>60); GFR (African American) 123 ML/MIN (>60); Globulin 2.9 g/dL (1.3-3.2); Glucose 91 mg/dl (74-100); HDL Cholesterol 34 mg/dl (40-60); Potassium 3.9 mmoL/L (3.5-5.1); Sodium 136 mmol/L (136-145); Total Protein,Serum 7.4 g/dl (6.3-8.2); Triglycerides 273 mg/dl (30-150); VLDL Cholesterol 55 mg/dL (0-40)
[2023-07-29 19:44] LABS: Basophils # 0.1 K/mm3 (0-0.2); Basophils % 0.9 % (0.1-2.0); Eosinophils # 0.1 K/mm3 (0.0-0.4); Eosinophils % 1.3 % (0.1-12.0); Hematocrit 41.9 % (37.0-47.0); Hemoglobin 14.4 g/dL (12.2-16.2); Lymphocytes # 3.8 K/mm3 (0.7-4.5); Lymphocytes % 37.2 % (10-50); Mean Corpuscular HGB Conc 34.3 g/dL (31.8-35.4); Mean Corpuscular Hemoglobin 28.8 pg (27.0-31.2); Mean Platelet Volume 9.5 fl (7.4-10.4); Monocytes # 0.7 K/mm3 (0.1-1.0); Monocytes % 6.5 % (1.7-9.3); Neutrophils # 5.6 K/mm3 (1.8-7.8); Neutrophils % 54.1 % (37.0-80.0); Platelet Count 476 K/mm3 (142-424); Red Blood Count 4.99 M/mm3 (4.20-5.40); Red Cell Distribution Width 14.4 % (11.5-17.5); White Blood Count 10.3 K/mm3 (4.8-10.8)
[2023-07-29 20:02] LABS: 25-OH Vitamin D, Total 19.5 ng/mL (30-100)
[2023-07-29 20:15] LABS: Thyroid Stimulating Hormone 2.52 uIU/mL (0.465-4.68)
[2023-07-29 20:42] LABS: Direct LDL Cholesterol 140.97 mg/dL (100-129)
[2023-07-29 21:15] LABS: Vitamin B12 405 pg/mL (239-931)
== END 2023-07-29 23:59 ==
LOC: LAB.DROPOF 07-30 07:30
PROVIDERS: PCP Physician Assistant; Visit Provider Physician Assistant
DX: K52.9 Noninfective gastroenteritis and colitis, unspecified (principal); N92.0 Excessive and frequent menstruation with regular cycle; R53.83 Other fatigue; R39.9 Unspecified symptoms and signs involving the genitourinary system; E55.9 Vitamin D deficiency, unspecified; Z79.899 Other long term (current) drug therapy; B96.89 Other specified bacterial agents as the cause of diseases classified elsewhere
CPT/HCPCS: 80053; 80061; 82306; 82607; 84443; 85025; 87086

== ENCOUNTER 2023-08-27 12:19 | Day surgery (SDC) | payer BC, SELFPAY ==
[2023-08-27 12:23] VITALS: BMI 34.9
[2023-08-27 12:41] VITALS: BP 154/95; PULSE 76; RESP 19; TEMP 36.4; O2SAT 97
[2023-08-27 12:41] LABS: Urine Pregnancy, HCG Qual. Negative (Negative)
[2023-08-27] MEDS: LACTATED RINGERS 1000ML 1,000 ML 25 ML IV (12:51)
[2023-08-27 13:50] VITALS: O2SAT 97
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
--- NOTE | 2023-08-27 14:13 | HMH.SCOPE ---
Procedure: Date: 08/27/23 Patient Date of :: 2000 Procedure Performed:: EGD and biopsies and dilation Indications:: Nausea, abdominal pain, dysphagia Performing Provider:: Mikki Prado MD Referring Provider:: Karmen Prado APRN Sedation:: Propofol Procedure:: The gastroscope was gently passed through the incisoral orifice into the oral cavity and under direct visualization the esophagus was intubated. The endoscope was passed down the esophagus, through the stomach, and into the duodenum. Color, texture, mucosa, and anatomy of the esophagus, stomach, and duodenum were carefully examined with the scope. Findings:: Oropharynx: normal Esophagus: normal, empiric bougie dilation performed EG Junction: intact at 40 cm Cardia: normal Fundus: normal Body: normal, biopsies taken for evaluation of h.pylori Antrum: normal Duodenal bulb: normal Duodenum (second and third portion): normal Impression: Symptomatic dysphagia treated with bougie dilation GI symptoms most likely related to and exacerbated by cannabis use Specimens:: gastric Recommendations:: Eliminate Routine cannabis use F/U with GI Clinic Evaluation for PCOS Complications:: None Estimated blood obtained (mL): 0 Colonoscopy Component Colonoscopy Component Was a colonoscopy performed during today's procedure?: No
[2023-08-27 14:17] VITALS: BP 84/48; PULSE 68; RESP 16; TEMP 36.3; O2SAT 97
--- NOTE | 2023-08-27 14:18 | HMH.SCOPE ---
Procedure: Date: 08/27/23 Patient Date of :: 2000 Procedure Performed:: Diagnostic colonoscopy Indications:: Rectal bleeding, abdominal pain, diarrhea Performing Provider:: Mikki Prado MD Referring Provider:: Karmen Prado APRN Sedation:: Propofol Procedure:: After placing the patient in the left lateral decubitus position, the colonoscopy was gently inserted into the rectum and under direct visualization advanced to the cecum which was identified by transillumination in the right lower quadrant, identification of the ileocecal valve, appendiceal orifice, and cecal strap. Color, texture, mucosa, and anatomy of the colon were carefully examined with the scope. Findings:: Anal canal: normal Rectum: normal Sigmoid colon: normal without polyps or inflammatory changes Descending colon: normal without polyps or inflammatory changes Splenic flexure: normal Transverse colon: normal without polyps or inflammatory changes Hepatic flexure: normal Ascending colon: normal without polyps or inflammatory changes Cecum: normal Terminal ileum: not visualized Impression: Normal colonoscopy: No evidence of inflammatory bowel disease (Colitis) Symptoms related and exacerbated by the use of cannabis Recommendations:: Cessation of routine cannabis use F/U with GI Clinic Evaluation of PCOS Complications:: None Estimated blood obtained (mL): 0 Colonoscopy Component Colonoscopy Component Was a colonoscopy performed during today's procedure?: Yes Recommended follow up colonoscopy of at least 10 years?: Yes
[2023-08-27 14:19] VITALS: BP 85/50; PULSE 63; RESP 18; O2SAT 99
[2023-08-27 14:31] VITALS: BP 89/44; PULSE 54; RESP 18; O2SAT 100
[2023-08-27 14:48] VITALS: BP 128/80; PULSE 75; RESP 18; TEMP 36.3; O2SAT 100
== END 2023-08-27 14:50 | disposition home or self-care (01) ==
PROVIDERS: PCP Physician Assistant; Visit Provider Internal Medicine Gastroenterology
PROC: 0DJ08ZZ Inspection of Upper Intestinal Tract, Via Natural or Artificial Opening Endoscopic (ICD-10-PCS; CPT 43235; principal; 2023-08-27 13:30)
DX: R13.10 Dysphagia, unspecified (principal); R10.9 Unspecified abdominal pain; R11.0 Nausea; F12.90 Cannabis use, unspecified, uncomplicated
CPT/HCPCS: 43248; 43239; 81025

== ENCOUNTER 2023-10-08 15:17 | Outpatient (CLI) | payer BC, SELFPAY ==
[2023-10-08 15:55] LABS: Basophils # 0.2 K/mm3 (0-0.2); Basophils % 1.6 % (0.1-2.0); Eosinophils # 0.3 K/mm3 (0.0-0.4); Eosinophils % 1.9 % (0.1-12.0); Hematocrit 45.7 % (37.0-47.0); Hemoglobin 15.3 g/dL (12.2-16.2); Lymphocytes # 3.8 K/mm3 (0.7-4.5); Lymphocytes % 27.3 % (10-50); Mean Corpuscular HGB Conc 33.6 g/dL (31.8-35.4); Mean Corpuscular Hemoglobin 29.5 pg (27.0-31.2); Mean Corpuscular Volume 87.7 fl (81-99); Mean Platelet Volume 7.5 fl (7.4-10.4); Monocytes # 0.6 K/mm3 (0.1-1.0); Monocytes % 4.5 % (1.7-9.3); Neutrophils % 64.8 % (37.0-80.0); Platelet Count 498 K/mm3 (142-424); Red Blood Count 5.21 M/mm3 (4.20-5.40); Red Cell Distribution Width 13.9 % (11.5-17.5); White Blood Count 13.8 K/mm3 (4.8-10.8)
[2023-10-08 16:45] LABS: Anion Gap 15.3 mEq/L (5-15); Blood Urea Nitrogen 12 mg/dl (7-17); Calcium 9.9 mg/dl (8.4-10.2); Carbon Dioxide 27 mmol/L (22.0-30.0); Chloride 102 mmol/L (98-107); Estimated Glomerular Filt Rate 102 ml/min (>60); GFR (African American) 123 ML/MIN (>60); Glucose 92 mg/dl (74-100); Potassium 4.3 mmoL/L (3.5-5.1); Sodium 140 mmol/L (136-145)
== END 2023-10-08 23:59 ==
LOC: LAB 15:17
PROVIDERS: PCP Physician Assistant; Visit Provider Physician Assistant
DX: G90.A Postural orthostatic tachycardia syndrome [POTS] (principal); I10 Essential (primary) hypertension; R00.2 Palpitations
CPT/HCPCS: 36415; 80048; 85025

== ENCOUNTER 2023-11-02 22:49 | Outpatient (CLI) | payer BC, SELFPAY | END 2023-11-02 23:59 | LOC: LAB.DROPOF 22:49 | PROVIDERS: PCP Physician Assistant; Visit Provider Physician Assistant | DX: R30.0 Dysuria (principal); B95.2 Enterococcus as the cause of diseases classified elsewhere; B96.89 Other specified bacterial agents as the cause of diseases classified elsewhere | CPT/HCPCS: 87086 ==

== ENCOUNTER 2023-11-30 10:35 | Outpatient (CLI) | payer BC, SELFPAY ==
--- NOTE | 2023-11-30 10:36 | CA_ITS ---
FINAL REPORT TECHNIQUE: Grayscale, color Doppler and duplex Doppler ultrasound of the kidneys, aorta and renal arteries was performed. Multiple velocities were measured. CLINICAL HISTORY: HTN,SMOKER,OBESITY,HX RT CORNELIA COMPARISON: None FINDINGS: Aorta velocity: 103 cm/sec Right kidney: 11.5 cm. No evidence of hydronephrosis or mass. Right intrarenal RI: 0.61 Right renal artery velocity: 143 cm/sec. Right RAR (Renal artery-Aortic Ratio): 1.4 Left Kidney: 11.2 cm. No evidence of hydronephrosis or mass. Left intrarenal RI: 0.61 Left renal artery velocity: 167 cm/sec. Left RAR (Renal Artery-Aortic Ratio): 1.6 IMPRESSION: No evidence of significant renal artery stenosis. CT angiogram or postcontrast MR angiogram would be more sensitive for evaluation of possible renal artery stenosis. Reviewed, Interpreted and Dictated by Gerber Kim III, MD Transcribed by Talya Aguilar Authenticated and [facility]
== END 2023-11-30 23:59 | disposition home or self-care (01) ==
LOC: RT 10:36
PROVIDERS: PCP Physician Assistant; Visit Provider Physician Assistant
DX: I70.1 Atherosclerosis of renal artery (principal)
CPT/HCPCS: 93976

== ENCOUNTER 2024-02-25 17:26 | Outpatient (CLI) | payer BC, SELFPAY ==
[2024-02-25 17:17] LABS: Basophils # 0.1 K/mm3 (0-0.2); Eosinophils # 0.3 K/mm3 (0.0-0.4); Eosinophils % 2.2 % (0.1-12.0); Hematocrit 44.5 % (37.0-47.0); Hemoglobin 15.2 g/dL (12.2-16.2); Lymphocytes # 3.2 K/mm3 (0.7-4.5); Mean Corpuscular Hemoglobin 28.8 pg (27.0-31.2); Mean Corpuscular Volume 84.6 fl (81-99); Mean Platelet Volume 8.5 fl (7.4-10.4); Monocytes # 0.7 K/mm3 (0.1-1.0); Monocytes % 5.5 % (1.7-9.3); Neutrophils % 65.4 % (37.0-80.0); Platelet Count 502 K/mm3 (142-424); Red Blood Count 5.27 M/mm3 (4.20-5.40); Red Cell Distribution Width 13.9 % (11.5-17.5); White Blood Count 12.3 K/mm3 (4.8-10.8)
[2024-02-25 17:31] LABS: Erythrocyte Sedimentation Rate 11 mm/hr (0-20)
[2024-02-25 18:02] LABS: 25-OH Vitamin D, Total 46.1 ng/mL (30-100)
[2024-02-25 18:06] LABS: HIV (1&2) Antibody Rapid NONREACTIVE (NONREACTIVE)
[2024-02-25 23:54] LABS: Albumin Level 4.9 g/dl (3.5-5.0); Chloride 104 mmol/L (98-107); Sodium 141 mmol/L (136-145)
[2024-02-25 23:55] LABS: Potassium 4.6 mmoL/L (3.5-5.1)
[2024-02-25 23:57] LABS: Alanine Aminotransferase 54 U/L (12-78); Anion Gap 16.6 mEq/L (5-15); Aspartate Amino Transferase 51 U/L (14-36); Blood Urea Nitrogen 11 mg/dl (7-17); Carbon Dioxide 25 mmol/L (22.0-30.0); Estimated Glomerular Filt Rate 102 ml/min (>60); GFR (African American) 123 ML/MIN (>60)
[2024-02-25 23:58] LABS: Albumin/Globulin Ratio 1.6 (1.1-1.8); Alkaline Phosphatase 59 U/L (38-126); Bilirubin,Total 0.6 mg/dl (0.2-1.3); Chol/HDL Ratio 5.3 (1-3.5); Cholesterol 251 mg/dl (140-200); Globulin 3.1 g/dL (1.3-3.2); Glucose 75 mg/dl (74-100); HDL Cholesterol 47 mg/dl (40-60); Triglycerides 268 mg/dl (30-150); VLDL Cholesterol 54 mg/dL (0-40)
[2024-02-26 00:03] LABS: C-Reactive Protein 12.6 mg/L (0-4)
[2024-02-26 00:09] LABS: Direct LDL Cholesterol 155.91 mg/dL (100-129)
[2024-02-26 00:28] LABS: Thyroid Stimulating Hormone 1.54 uIU/mL (0.465-4.68)
[2024-02-27 05:15] LABS: HCV Ab Non Reactive (Non Reactive)
[2024-02-27 13:21] LABS: Anti-Cyclic Citrullinated Pept 5 units (0-19)
[2024-02-29 14:11] LABS: Anti-Centromere B Antibodies <0.2 AI (0.0-0.9); Anti-DNA (DS) Ab Qn <1 IU/mL (0-9); Anti-Jo-1 <0.2 AI (0.0-0.9); Anti-Smith Antibody <0.2 AI (0.0-0.9); Antichromatin Antibodies <0.2 AI (0.0-0.9); Antiscleroderma-70 Antibodies <0.2 AI (0.0-0.9); RNP Antibodies 0.4 AI (0.0-0.9); Sjogren's Anti-SS-A <0.2 AI (0.0-0.9); Sjogren's Anti-SS-B <0.2 AI (0.0-0.9)
== END 2024-02-25 23:59 | disposition home or self-care (01) ==
LOC: LAB.DROPOF 17:27
PROVIDERS: PCP Physician Assistant; Visit Provider Physician Assistant
DX: M25.50 Pain in unspecified joint (principal); Z68.34 Body mass index [BMI] 34.0-34.9, adult; E66.9 Obesity, unspecified
CPT/HCPCS: 80050; 80053; 80061; 82306; 84443; 85025; 85651; 86140; 86200; 86225; 86235; 86431